=== PATIENT | female | born 1965 | race Caucasian/White ===

== ENCOUNTER 2017-06-27 18:50 | Inpatient (IN) | payer BC, OTHER ==
[~2017-06-27] VITALS: Ht 162.6 cm; Wt 54.4 kg
--- NOTE | 2017-06-28 03:15 | NUR ---
Pre admission note Pt seen in intake office. Pt is in stable condition with V/S WNL. Policies on medication disposal explained to and understood by patient. Will admit to unit. Respirations even and unlabored. Will continue to monitor.
--- NOTE | 2017-06-28 03:40 | NUR ---
Admission note Pt is a 52 yo female, A+Ox4, presenting to [facility] for Benzo/Crack cocaine withdrawal. Pt has allergies to "Oral Antibiotics", is on Full code status, and on Regular diet. Pt is 5'4" in height and 120 LBS in weight. Pt has medical HX of Anxiety, depression, bipolar, fibromyalgia, arthritis, migraines, PTSD, Insomnia, Collagenous colitis, Cervical spine fusion, and chronic loose bowels. Pt has family HX of Cardiomegaly from daughter. Pt has a primary care provider named Dr. Lovelace. Pt has been taking Xanax as prescribed for anxiety for 1 year, has reached a level of 2mg/daily, and last dose was 2mg on 06-26-17. Pt has been using crack cocaine for 37 years (1 day Currently), for this 1 day patient is not sure how much she used by stating "i'm not sure but it was a lot", last dose was on 06-27-17. Pt is taking home medications as follows: Xanax 1mg BID, Zoloft 300mg QD, Wellbutrin 300mg QD, and Trazodone 50mg QHS. Pt has HX of previous detox/rehab @ [facility] in [place], [place] in 03/2011 and continued sobriety until 06/26/2017. This was the patient's last time sober. Pt has been a cigarette smoker for 43 years and has reached a level of 30-40/daily. Pt is in stable condition with V/S WNL. Pt is odorous with messy/dirty clothing. Pt states "I was sober for over 6 years and now i need to get back to sobriety." Pt states "Going to treatment is what helped me last time so i know that this will work for me again." Pt states " I am doing this for my kids." Pt is on PRN medications until further evaluation from [place] in AM. Respirations even and unlabored. Will continue to monitor.
[2017-06-28] MEDS ORDERED: HYDROXYZINE PAMOATE 25 MG CAPSULE PO PRN (03:45)
[2017-06-28] MEDS ORDERED: ONDANSETRON 4 MG/2 ML VIAL IM PRN (03:45)
[2017-06-28] MEDS ORDERED: LORAZEPAM 1 MG TABLET PO PRN ×2 (03:45)
[2017-06-28] MEDS ORDERED: LORAZEPAM 2 MG/1 ML VIAL IM PRN (03:45)
[2017-06-28] MEDS ORDERED: MAGNESIUM HYDROXIDE 30 ML LIQUID UDC PO PRN (03:45)
[2017-06-28] MEDS ORDERED: ACETAMINOPHEN 325 MG TABLET PO PRN (03:45)
[2017-06-28] MEDS ORDERED: MIRALAX 17 GM POWD.PACK PO PRN (03:45)
[2017-06-28] MEDS ORDERED: MAG HYDROX/AL HYDROX/SIMETH 30 ML LIQUID UDC PO PRN (03:45)
[2017-06-28] MEDS ORDERED: LOPERAMIDE HCL 2 MG CAPSULE PO PRN ×2 (03:45)
[2017-06-28] MEDS ORDERED: DICYCLOMINE HCL 20 MG TABLET PO PRN (03:45)
[2017-06-28] MEDS ORDERED: ACET-2154 PO (03:53)
[2017-06-28] MEDS ORDERED: [UNRECOGNIZED DRUG - CODE] PO (03:53)
[2017-06-28] MEDS ORDERED: SUMA100T16 PO (03:53)
[2017-06-28 04:05] VITALS: BP 152/92
[2017-06-28 04:31] LABS: BASOPHILS # (AUTO) 0.1 K/uL (0.0-8.0); BASOPHILS % (AUTO) 1.1 % (0.0-2.0); EOSINOPHILS # (AUTO) 0.5 K/uL (0.0-0.7); EOSINOPHILS % (AUTO) 3.7 % (0.0-7.0); HEMATOCRIT 46.8 % (31.2-41.9); HEMOGLOBIN 16.1 g/dL (10.9-14.3); LYMPHOCYTES # (AUTO) 5.9 K/uL (20.0-40.0); LYMPHOCYTES % (AUTO) 44.9 % (20.5-51.5); MEAN CORPUSCULAR HEMOGLOBIN 31.9 uug (24.7-32.8); MEAN CORPUSCULAR HGB CONC 34 g/dL (32.3-35.6); MEAN CORPUSCULAR VOLUME 92.7 fL (75.5-95.3); MONOCYTES # (AUTO) 0.8 K/uL (2.0-10.0); NEUTROPHILS # (AUTO) 5.8 K/uL (1.8-8.9); NEUTROPHILS % (AUTO) 44.3 % (38.5-71.5); PLATELET COUNT (AUTO) 275 K/uL (179-408); RED BLOOD CELL COUNT(AUTO) 5.04 MIL/uL (3.63-4.92); WHITE BLOOD COUNT (AUTO) 13.1 K/uL (3.8-11.8)
--- NOTE | 2017-06-28 04:39 | NUR ---
PRN Ativan 2mg Pt c/o anxiety and noted with CIWA: 16. PRN Ativan 2mg given and tolerated well. Will reassess within 1 HR. Will continue to monitor.
[2017-06-28 04:52] LABS: ALANINE AMINOTRANSFERASE 30 U/L (14-59); ALKALINE PHOSPHATASE 131 U/L (50-136); AMYLASE 134 U/L (25-115); ASPARTATE AMINOTRANSFERASE 18 U/L (15-37); BILIRUBIN,TOTAL 0.5 mg/dL (0.2-1.0); CARBON DIOXIDE 27 mmol/L (21-32); CHLORIDE 100 mmol/L (98-107); CREATININE 0.9 mg/dL (0.6-1.3); GLUCOSE 107 mg/dL (74-106); LIPASE 718 U/L (73-393); MAGNESIUM 2.1 mg/dL (1.8-2.4); POTASSIUM 3.2 mmol/L (3.5-5.1); TOTAL PROTEIN, SERUM 9.2 g/dL (6.4-8.2); UREA NITROGEN, BLOOD 16 mg/dL (7-18)
[2017-06-28 04:59] LABS: ETHANOL < 3 MG/DL (0-0)
[2017-06-28 05:00] LABS: *AMPHETAMINE, URINE NEGATIVE (NEGATIVE); *BARBITURATE, URINE NEGATIVE (NEGATIVE); *CANNABINOID, URINE NEGATIVE (NEGATIVE); *COCCAINE, URINE POSITIVE (NEGATIVE); *OPIATE, URINE NEGATIVE (NEGATIVE); *PHENCYCLIDINE SCREEN,URINE NEGATIVE (NEGATIVE)
[2017-06-28 05:03] LABS: THYROID STIMULATING HORMONE 2.836 mIU/mL (0.358-3.740)
--- NOTE | 2017-06-28 05:36 | NUR ---
PRN Ativan 2mg Reassessment Medication effective. Pt expresses reduction in anxiety with CIWA: 10. No s/s of ASE noted at this time. Respirations even and unlabored. Will continue to monitor.
--- NOTE | 2017-06-28 06:54 | NUR ---
End of shift note Newly admitted patient. Pt was continuously noted with anxiety, restlessness, and agitation. Pt remained in room for majority of remainder of shift except to go smoke on smoking patio and to get food from kitchen. Pt was given PRN Ativan 2mg @0439. Pt slept for a total of 1 HRS. Last CIWA: 10 @0530. Respirations even and unlabored. Will continue to monitor.
--- NOTE | 2017-06-28 07:49 | NUR ---
Start of shift- Pt admitted for medically supervised withdrawal of Benzo (Xanax) and cocaine. Pt asleep, responds to voice and light touch. Resp even and unlabored. Patient noted to be disheveled, unkempt and uncombed. Pt was given PRN Ativan 2mg @0439. Pt slept for a total of 1 hour Last CIWA: 10 @0530. Patient reports allergies to oral antibiotics. Will continue to encourage pt to attend groups to learn/develop new copings kills to prevent relapse. Pt is on Regular Diet, Full Code, and Fall and Seizures Precautions. Safety measures in the place: Call light within reach, bed in the lowest position and locked, padded rails up x2. Will continue to closely monitor s/s of withdrawal.
[2017-06-28 08:00] VITALS: BP 125/84
--- NOTE | 2017-06-28 08:00 | NUR ---
CIWA 5, Pt asleep, resp even and unlabored. responds to voice and light touch. VSS.
[2017-06-28] MEDS ORDERED: MULTIVITAMINS,THERAPEUTIC TABLET PO SCH (09:00)
[2017-06-28] MEDS ORDERED: FOLIC ACID 1 MG TABLET PO SCH (09:00)
[2017-06-28] MEDS ORDERED: POTASSIUM CHLORIDE 20 MEQ TAB.PRT.SR PO ONE ×2 (09:00→13:00)
[2017-06-28] MEDS ORDERED: SUMATRIPTAN SUCCINATE 50 MG TABLET PO PRN (11:45)
[2017-06-28 12:00] VITALS: BP 128/76
[2017-06-28] MEDS: IBUPROFEN 600 MG TABLET PO PRN ×2 (14:02→20:45)
[2017-06-28] MEDS: LORAZEPAM 1 MG TABLET PO SCH ×2 (14:02→20:44)
--- NOTE | 2017-06-28 14:03 | NUR ---
PRN MOTRIN 600 MG PO FOR PAIN #6/10 ON WHOLE RIGHT SIDE.
--- NOTE | 2017-06-28 15:00 | NUR ---
Reassess Motrin- Pt reports pain better now #4/. Medication effective.
[2017-06-28 16:00] VITALS: BP 137/75
--- NOTE | 2017-06-28 18:26 | NUR ---
End of shift- Pt admitted for medically supervised withdrawal of Benzo (Xanax) and cocaine. Pt A&OX4. Resp even and unlabored. Patient has flat affect and depressed mood. Patient noted to be disheveled, unkempt and uncombed. Last CIWA 10. PRN medications administered Motrin per MD orders. Patient reports allergies to oral antibiotics and did not specify which ones. Pt poor historian. Encourage pt to attend groups to learn/develop new copings kills to prevent relapse. Pt did not attend group therapy today. Encouraged to fluid intake as tolerated. Full Code, is on Fall and Seizures Precautions. Safety measures in place. Adequate PO fluid intake 2200 ml, void X 10, BM x 10. Pt has colitis and chronic loose stools. Safety measures in place. Will continue to closely monitor s/s of withdrawal. Endorsed to PM shift.
--- NOTE | 2017-06-28 19:30 | NUR ---
START OF SHIFT Received 52 year old female patient admitted on 06/28/17 for Xanax and Cocaine withdrawal. Pt is alert and oriented x4. She is noted with anxiety, restlessness, flushed face, and irritability. She complains of right shoulder pain 6/10. She is receiving a 4 day Ativan taper and tolerating well. Per endorsement, received PRN Motrin. Last CIWA:10 at 1600. Breathing is even and unlabored, safety measures in place. Will monitor.
[2017-06-28 20:00] VITALS: BP 138/79
[2017-06-28] MEDS: GABAPENTIN 300 MG CAPSULE PO SCH (20:44)
--- NOTE | 2017-06-28 20:45 | NUR ---
PRN MOTRIN Pt complains of right shoulder pain 08/10. PRN Motrin administered as ordered. Safety measures in place. Will monitor effectiveness.
--- NOTE | 2017-06-28 21:45 | NUR ---
PRN REASSESSMENT PRN Motrin effective. Pt lying in bed with eyes closed noted to be asleep. Breathing is even and unlabored, safety measures in place. Will continue to monitor.
[2017-06-29] VITALS: BP 128/72
--- NOTE | 2017-06-29 04:00 | NUR ---
VITALS REFUSED, CIWA DEFERRED 0400 vitals refused. CIWA deferred d/t pt lying in bed with eyes closed noted to be asleep. Breathing is even and unlabored, safety measures in place. Will monitor.
--- NOTE | 2017-06-29 07:14 | NUR ---
END OF SHIFT Pt is a 52 year old female patient admitted on 06/28/17 for Xanax and Cocaine withdrawal. Pt remains alert and oriented x4. She was noted with anxiety, restlessness, flushed face, and irritability during the shift. She continues on a 4 day Ativan taper, currently on day 2 and is tolerating well. At 2044 she received PRN Motrin. She slept a total of 7 hrs, Intake: 1047mL, Void: x2, BM:0, Last CIWA:8 at 1999. Breathing is even and unlabored, safety measures in place. Endorsed to AM shift.
--- NOTE | 2017-06-29 07:36 | NUR ---
Start of shift- Pt admitted for medically supervised withdrawal of Benzo (Xanax) and cocaine. Pt asleep, responds to voice and light touch. Resp even and unlabored. Patient noted to be disheveled, unkempt and uncombed. Pt was given PRN Motrin last night. . Pt slept for a total of 7 hours. Last CIWA: 8. Patient reports allergies to oral antibiotics. Will continue to encourage pt to attend groups to learn/develop new copings kills to prevent relapse. FULL CODE, Fall and Seizures Precautions. Safety measures in the place: Call light within reach, bed in the lowest position and locked, padded rails up x2. Will continue to closely monitor s/s of withdrawal.
[2017-06-29 08:02] VITALS: BP 149/87
[2017-06-29] MEDS: GABAPENTIN 300 MG CAPSULE PO SCH ×3 (08:54→21:45)
[2017-06-29] MEDS: LORAZEPAM 1 MG TABLET PO SCH ×2 (08:54→14:15)
[2017-06-29] MEDS ORDERED: TUBERCULIN,PURIF.PROT.DERIV. 5 TU/0.1 ML TEST ID ONE (09:00)
[2017-06-29 12:00] VITALS: BP 141/78
[2017-06-29 12:06] LABS: HEPATITIS B SURFACE AG Negative (Negative)
[2017-06-29] MEDS: CLONIDINE HCL 0.1 MG TABLET PO PRN ×2 (12:29→22:38)
[2017-06-29] MEDS: HYDROXYZINE PAMOATE 25 MG CAPSULE PO PRN (12:29)
[2017-06-29] MEDS: IBUPROFEN 600 MG TABLET PO PRN ×2 (12:29→21:45)
--- NOTE | 2017-06-29 12:30 | NUR ---
PRN MEDICATIONS MOTRIN 600 MG PO FOR NECK PAIN #4/10 VISTARIL 25 MG PO FOR ANXIETY. CATAPRES 0.1 MG PO FOR ANXIETY PT TEARFUL, CRYING, ANXIETY AND UPSET ABOUT SESSION IN GROUP THERAPY.
--- NOTE | 2017-06-29 12:44 | NUR ---
Therapist prompted client to attend next group session at 3:30pm today.
--- NOTE | 2017-06-29 13:30 | NUR ---
REASSESS PRN MEDICATIONS; PT ASLEEP, RESP EVEN AN UNLABORED. ANTI-ANXIETY MEDICATIONS EFFECTIVE.
[2017-06-29 16:00] VITALS: BP 98/61
--- NOTE | 2017-06-29 18:32 | NUR ---
End of shift- Pt admitted for medically supervised withdrawal of Benzo (Xanax) and cocaine. Pt on 4 day Ativan taper (day 2). Last CIWA 7. Patient has flat affect and depressed mood. She was tearful, crying and anxious today after morning group session. Difficulty ID + coping skills. PRN medications Vistaril, Catapres, Motrin. Patient reports allergies to oral antibiotics and did not specify which ones. Encourage pt to attend groups to learn/develop new copings kills to prevent relapse. Pt attended both group therapy sessions today. Encouraged to fluid intake as tolerated. Full Code, is on Fall and Seizures Precautions. Safety measures in place. Adequate PO fluid intake 2236 ml, void X 1, BM x 1. Pt has colitis and chronic loose stools. Safety measures in place. Will continue to closely monitor s/s of withdrawal. Endorsed to PM shift.
--- NOTE | 2017-06-29 19:30 | NUR ---
START OF SHIFT Pt is a 52 y/o female admitted on 06/28/17 for benzo and cocaine withdrawal. Pt received PRN Vistaril, Clonidine and Motrin and last CIWA 7 during day shift. Upon assessment pt presents with increased BP, anxiety, emotional lability, agitation, worry, flat affect, is tearful, toothache 5/10, neck and shoulder pain 5/10, nausea, difficulty falling and staying asleep, disheveled appearance, unkempt room, depressed mood, restlessness, dysphoria and anhedonia. Pt refused side rails up x 2, one side rail up at this time, provided education about safety of side rails, pt understood and refused. Medications due. Safety measures in place. Call light within reach. Will continue to monitor.
[2017-06-29 20:00] VITALS: BP 141/89
[2017-06-29] MEDS ORDERED: LORAZEPAM 1 MG TABLET PO SCH (21:00)
[2017-06-29] MEDS: diphenhydrAMINE 50 MG CAPSULE PO PRN (21:45)
[2017-06-29] MEDS: ONDANSETRON ODT 4 MG TAB.RAPDIS SL PRN (21:45)
--- NOTE | 2017-06-29 21:45 | NUR ---
PRN BENADRYL, MOTRIN AND ZOFRAN ODT ADMINISTRATION Pt requests sleep aid. Pt complains of tooth pain and neck/shoulder pain 5/10 and nausea without vomiting. Safety measures in place. Call light within reach. Will continue to monitor.
--- NOTE | 2017-06-29 22:45 | NUR ---
PRN BENADRYL, MOTRIN AND ZOFRAN REASSESSMENT AND CLONIDINE ADMINISTRATION Pt remains awake, but appears more fatigued. Pt reports pain in teeth and neck reduced to tolerable level. Pt reports nausea has ceased. BP 150/90 HR 80 and presents with anxiety, agitation and intermittent sweats and chills. Safety measures in place. Call light within reach. Will continue to monitor.
--- NOTE | 2017-06-29 23:45 | NUR ---
PRN CLONIDINE REASSESSMENT Pt presents with improvement in anxiety, agitation, sweats and chills. Safety measures in place. Call light within reach. Will continue to monitor.
[2017-06-30] VITALS: BP 114/68
[2017-06-30 04:00] VITALS: BP 121/72
--- NOTE | 2017-06-30 04:00 | NUR ---
CIWA DEFERRED Pt laying in bed with eyes closed, CIWA deferred, to be assessed when pt is awake per orders. Respirations even and unlabored. Safety measures in place. Call light within reach. Will continue to monitor.
--- NOTE | 2017-06-30 07:00 | NUR ---
start of shift note: received pt from shift superintendent nurse, pt is in stable condition at this time. pt is awake and wanting to smoke a cigarette. pt is admitted to [facility] for Benzo/cocaine last documented ciwa 10, pt slept 6 hrs. will continue to monitor pt for any changes and will continue to meet pts needs.
--- NOTE | 2017-06-30 07:13 | NUR ---
END OF SHIFT Pt is a 52 y/o female admitted on 06/28/17 for benzo and cocaine withdrawal. Pt is on a 4 day Ativan taper, tolerating well. Pt presented with increased BP, anxiety, emotional lability, agitation, worry, flat affect, is tearful, toothache 5/10, neck and shoulder pain 5/10, nausea, difficulty falling and staying asleep, disheveled appearance, unkempt room, depressed mood, restlessness, dysphoria and anhedonia. Pt refused side rails up x 2, one side rail up at this time, provided education about safety of side rails, pt understood and refused. Pt reported loose stools, refused Imodium. Scheduled medications and PRN Benadryl, Motrin, Zofran odt and Clonidine administered, effective in S/S of withdrawal AEB CIWA 11 lowered to CIWA 10. Pt slept 6 hours. Intake 902 ml, void x 2, stool x 0. Safety measures in place. Call light within reach. Will continue to monitor.
[2017-06-30 08:36] LABS: BASOPHILS # (AUTO) 0.1 K/uL (0.0-8.0); BASOPHILS % (AUTO) 1.1 % (0.0-2.0); EOSINOPHILS # (AUTO) 0.4 K/uL (0.0-0.7); EOSINOPHILS % (AUTO) 4.2 % (0.0-7.0); LYMPHOCYTES % (AUTO) 38.5 % (20.5-51.5); MEAN CORPUSCULAR HEMOGLOBIN 31.9 uug (24.7-32.8); MEAN CORPUSCULAR HGB CONC 34 g/dL (32.3-35.6); MEAN CORPUSCULAR VOLUME 93.4 fL (75.5-95.3); MONOCYTES # (AUTO) 0.6 K/uL (2.0-10.0); MONOCYTES % (AUTO) 5.8 % (0.0-11.0); NEUTROPHILS # (AUTO) 5.2 K/uL (1.8-8.9); NEUTROPHILS % (AUTO) 50.4 % (38.5-71.5); PLATELET COUNT (AUTO) 233 K/uL (179-408); RED BLOOD CELL COUNT(AUTO) 4.38 MIL/uL (3.63-4.92); WHITE BLOOD COUNT (AUTO) 10.3 K/uL (3.8-11.8)
[2017-06-30] MEDS: GABAPENTIN 300 MG CAPSULE PO SCH ×3 (08:47→20:36)
[2017-06-30] MEDS: LORAZEPAM 1 MG TABLET PO SCH ×3 (08:47→20:36)
[2017-06-30] MEDS: IBUPROFEN 600 MG TABLET PO PRN ×2 (08:51→20:36)
--- NOTE | 2017-06-30 08:51 | NUR ---
PRN administration: pt with complaints of neck pain on her right side, pain level 5/10. will administer Motrin and monitor effectiveness of medication.
[2017-06-30 08:55] LABS: BILIRUBIN,DIRECT 0.1 mg/dL (0.0-0.2); BILIRUBIN,TOTAL 0.2 mg/dL (0.2-1.0); CREATININE 1.1 mg/dL (0.6-1.3)
[2017-06-30 09:00] LABS: POTASSIUM 6.5 mmol/L (3.5-5.1)
[2017-06-30] MEDS ORDERED: LORAZEPAM 1 MG TABLET PO SCH (09:00)
[2017-06-30 09:21] VITALS: BP 130/79
[2017-06-30] MEDS ORDERED: FUROSEMIDE 40 MG TABLET PO ONE (09:45)
[2017-06-30] MEDS ORDERED: SODIUM POLYSTYRENE SULFONATE 15 G/60 ML LIQUID UDC PO ONE ×2 (09:45→23:30)
--- NOTE | 2017-06-30 09:51 | NUR ---
prn re-assessment: pt verbalized effectiveness, she is able to move and turn her neck more easily. pain level 2/10.
[2017-06-30 12:38] VITALS: BP 131/87
[2017-06-30] MEDS: HYDROXYZINE PAMOATE 25 MG CAPSULE PO PRN (12:48)
[2017-06-30] MEDS: ONDANSETRON ODT 4 MG TAB.RAPDIS SL PRN (12:48)
--- NOTE | 2017-06-30 12:48 | NUR ---
Prn administration, pt verbalized she was nauseated and having increased anxiety levels, will administer vistaril and zofran will re-assess effectiveness.
--- NOTE | 2017-06-30 13:48 | NUR ---
prn re-assessment: pt verbalized zofran and vistaril with help. pt verbalizes no nausea and was able to eat lunch and is less anxious
[2017-06-30 14:18] LABS: CREATININE 1.1 mg/dL (0.6-1.3); PHOSPHOROUS 5.9 mg/dL (2.5-4.9); POTASSIUM 5.8 mmol/L (3.5-5.1)
[2017-06-30 18:04] VITALS: BP 126/86
--- NOTE | 2017-06-30 18:58 | NUR ---
end of shift note: pt is in stable condition at this time, pt is sleeping heavily at this time, pt is [facility] for benzo/crack cocaine. pt tolerated taper well with no A/R noted. pt attended groups. pt's potassium was critically high 6.5 and, pt received kayexalate and lasix x1. pt then had a re- draw and noted at 5.8 medication was effective. will endorse pt to mine shifter nurse.
--- NOTE | 2017-06-30 19:30 | NUR ---
START OF SHIFT Pt is a 52 y/o female admitted on 06/28/17 for benzo and cocaine withdrawal. Pt received PRN Zofran, Vistaril and Motrin and last CIWA 5 during day shift. Pt has hyperkalemia, Furosemide 40 mg PO x1 and Kayexalate 30 g PO x1 administered during day shift. K+ lowered from 6.5 to 5.8 today. Upon assessment pt presents with anxiety, agitation, worry, flat affect, is occasionally tearful, toothache 5/10, neck pain 5/10, intermittent nausea, difficulty falling and staying asleep, disheveled appearance, racing thoughts, unkempt room, depressed mood, restlessness, dysphoria and anhedonia. Pt also complains of loose stools, stomach discomfort, bloating and gas r/t colitis. Pt refused side rails up x 2, one side rail up at this time, provided education about safety of side rails, pt understood and refused. Medications due. Safety measures in place. Call light within reach. Will continue to monitor.
[2017-06-30 20:00] VITALS: BP 117/63
[2017-06-30] MEDS: diphenhydrAMINE 50 MG CAPSULE PO PRN (20:36)
--- NOTE | 2017-06-30 20:36 | NUR ---
PRN MOTRIN, BENADRYL AND MAALOX ADMINISTRATION Pt reports neck pain 8/10 and heartburn. Pt requests sleep aid. Safety measures in place. Call light within reach. Will continue to monitor.
--- NOTE | 2017-06-30 21:36 | NUR ---
PRN MOTRIN, BENADRYL AND MAALOX REASSESSMENT Pt reports neck pain reduced to 5/10 and heartburn has ceased. Pt remains awake, appears fatigued. Pt states, "I'm going to bed soon." Safety measures in place. Call light within reach. Will continue to monitor.
[2017-06-30] MEDS ORDERED: FUROSEMIDE 20 MG TABLET PO ONE (23:30)
[2017-06-30] MEDS ORDERED: FUROSEMIDE 20 MG TABLET ONE (23:55)
[2017-06-30] MEDS: SIMETHICONE 80 MG TAB.CHEW PO PRN (23:58)
--- NOTE | 2017-06-30 23:58 | NUR ---
PRN MYLICON ADMINISTRATION Pt reports flatulence and bloating. Safety measures in place. Call light within reach. Will continue to monitor.
[2017-07-01] VITALS: BP 130/70
[2017-07-01] MEDS ORDERED: TRAZODONE 50 MG TABLET PO ONE ×2 (00:30→21:00)
--- NOTE | 2017-07-01 00:58 | NUR ---
PRN MYLICON REASSESSMENT Pt reports flatulence and bloating improved. Safety measures in place. Call light within reach. Will continue to monitor.
--- NOTE | 2017-07-01 04:00 | NUR ---
CIWA DEFERRED AND VITALS REFUSED Pt laying in bed with eyes closed, CIWA deferred, to be assessed when pt is awake per orders. Vitals refused. Respirations even and unlabored. Safety measures in place. Call light within reach. Will continue to monitor.
[2017-07-01 06:57] LABS: PHOSPHOROUS 3.6 mg/dL (2.5-4.9); POTASSIUM 3.5 mmol/L (3.5-5.1)
--- NOTE | 2017-07-01 06:58 | NUR ---
END OF SHIFT Pt is a 52 y/o female admitted on 06/28/17 for benzo and cocaine withdrawal. Pt presented with anxiety, agitation, worry, flat affect, is occasionally tearful, toothache 5/10, neck pain 5/10, intermittent nausea, difficulty falling and staying asleep, disheveled appearance, racing thoughts, unkempt room, depressed mood, restlessness, dysphoria and anhedonia. Pt also complained of loose stools, stomach discomfort, bloating and gas r/t colitis. Pt refused medication for diarrhea, requested medication for gas/bloating. New order for PRN simethicone 80 mg now available. Pt refused side rails up x 2, one side rail up at this time, provided education about safety of side rails, pt understood and refused. Furosemide 40 mg PO x1 and Kayexalate 30 g PO x1 administered during for K+ 07/08. Scheduled medications and PRN Motrin, Benadryl, Maalox and Mylicon administered, effective in S/S of withdrawal AEB CIWA 10 lowered to CIWA 9 during shift and as verbalized by pt. Pt slept 5 hours. Intake 1650 ml, void x 5, stool x 1. Safety measures in place. Call light within reach. Pts needs have been met. Endorsed to day shift nurse.
[2017-07-01 07:15] VITALS: BP 109/71
--- NOTE | 2017-07-01 07:30 | NUR ---
Start of shift Hydraulic Controls Technician received report on 52 year old female admitted to [facility] on 06/28/17 for medical management of withdrawals from Xanax and Methamphetamines. Pt endorses allergies to unidentified oral anti-biotics, full code and regular diet. Reports past medical history of Fibromyalgia, arthritis, migraines, insomnia, Colitis, Cervical spinal fusion and chronic loose bowels. PPH of anxiety, depression Bipolar and PTSD. Pt was administered Simethicone(Gas), Motrin(pain), Benadryl(insomnia), and Maalox(Bloating/gas). Pt is on an Ativan taper and is tolerating well with last CIWA 9, per report. Hydraulic Controls Technician encounters pt in room resting with eyes closed, rise and fall of chest noted. Even and unlabored respiration. Bed in low position with wheels locked and side rails up x2. Will continue to monitor, support and encourage according to plan of care.
[2017-07-01 08:45] VITALS: BP 109/71
[2017-07-01] MEDS ORDERED: LORAZEPAM 1 MG TABLET PO SCH (09:00)
[2017-07-01] MEDS: GABAPENTIN 300 MG CAPSULE PO SCH ×3 (09:27→20:56)
[2017-07-01] MEDS: SIMETHICONE 80 MG TAB.CHEW PO PRN ×2 (09:36→18:18)
--- NOTE | 2017-07-01 09:36 | NUR ---
PRN Simethicone Pt request medication for gas. Medication administered per order with pt tolerating well. Will continue to monitor, support and encourage according to plan of care.
--- NOTE | 2017-07-01 10:10 | NUR ---
PRN Re-Assessment Pt with no complaints. Will continue to monitor, support and encourage according to plan of care.
[2017-07-01 12:33] VITALS: BP 125/83
--- NOTE | 2017-07-01 14:15 | NUR ---
Client was prompted by therapist to attend group counseling sessions. Client stated she may attend next group counseling session at 3:30pm depending on her mood.
[2017-07-01] MEDS: HYDROXYZINE PAMOATE 25 MG CAPSULE PO PRN ×2 (14:42→20:56)
--- NOTE | 2017-07-01 14:42 | NUR ---
PRN Vistaril/Clonidine Spotlight Operator complain of anxiety and requests medication. Spotlight Operator educated pt on non-pharmacological interventions previous to administration of medication. Pt tolerated well. Will continue to monitor, support ans encourage according to plan of care.
[2017-07-01] MEDS: CLONIDINE HCL 0.1 MG TABLET PO PRN (14:43)
--- NOTE | 2017-07-01 15:42 | NUR ---
PRN Re-Assessment Pt endorses relief and is resting comfortably in room. Will continue to monitor, support and encourage according to plan of care.
[2017-07-01 16:30] VITALS: BP 118/63
--- NOTE | 2017-07-01 18:18 | NUR ---
PRN Simethicone Pt complains of gas and bloating and is administered medication per order and tolerated well. Will continue to monitor, support and encourage according to plan of care.
--- NOTE | 2017-07-01 19:14 | NUR ---
End of shift Scientific Technical Writer provided report on 52 year old female admitted to [facility] on 06/28/17 for medical management of withdrawals from Xanax and Methamphetamines. Pt endorses allergies to unidentified oral anti-biotics, full code and regular diet. Reports past medical history of Fibromyalgia, arthritis, migraines, insomnia, Colitis, Cervical spinal fusion and chronic loose bowels. PPH of anxiety, depression Bipolar and PTSD. Pt was administered Simethicone(Gas) x2, and Vistaril(anxiety) and Clonidine(anxiety) PRN on my shift. Pt is on an Ativan taper and is tolerating well with last CIWA 8 at 1630. Pt has been calm and cooperative and makes her needs known. A/O x4, clear thought and speech with linear thought process. Pt is labile and has low frustration tolerance and is impulsive. Bed in low position with wheels locked and side rails up x2.
--- NOTE | 2017-07-01 19:16 | NUR ---
PRN Re-Assessment Pt has made no more complaints related to gas or bloating.
[2017-07-01] MEDS ORDERED: CLON0.1T14 PO (19:21)
[2017-07-01] MEDS ORDERED: GABA-534 PO ×2 (19:21)
[2017-07-01] MEDS ORDERED: IBUP-1955 PO (19:21)
[2017-07-01] MEDS ORDERED: SUMA50TA PO (19:21)
[2017-07-01] MEDS ORDERED: HYDR-3895 PO (19:21)
[2017-07-01] MEDS ORDERED: DIPH50CA37 PO (19:21)
--- NOTE | 2017-07-01 19:30 | NUR ---
START OF SHIFT Pt is a 52 y/o female admitted on 06/28/17 for benzo and cocaine withdrawal. Pt finished a 4 day Ativan taper and is scheduled to be d/c tomorrow. Pt received PRN simethicone x 2, Vistaril and Clonidine and last CIWA 8 during day shift. Upon assessment pt presents with anxiety, agitation, worry, flat affect, toothache 5/10, neck pain 5/10, difficulty falling and staying asleep, disheveled appearance, racing thoughts, hyperverbal speech, unkempt room, restlessness, dysphoria and anhedonia. Pt also complains of stomach discomfort, bloating and gas r/t colitis. Pt refused side rails up x 2, one side rail up at this time, provided education about safety of side rails, pt understood and refused. Medications due. Safety measures in place. Call light within reach. Will continue to monitor.
[2017-07-01 20:00] VITALS: BP 128/63
[2017-07-01] MEDS: IBUPROFEN 600 MG TABLET PO PRN (20:56)
--- NOTE | 2017-07-01 20:56 | NUR ---
PRN MOTRIN ADMINISTRATION Pt reports neck pain and tooth pain 5/10. Safety measures in place. Call light within reach. Will continue to monitor.
--- NOTE | 2017-07-01 21:56 | NUR ---
PRN MOTRIN REASSESSMENT Pt reports neck pain and tooth pain reduced to tolerable level. Safety measures in place. Call light within reach. Will continue to monitor.
[2017-07-02 04:00] VITALS: BP 131/67
--- NOTE | 2017-07-02 07:07 | NUR ---
END OF SHIFT Pt is a 52 y/o female admitted on 06/28/17 for benzo and cocaine withdrawal. Pt finished a 4 day Ativan taper and is scheduled to be d/c today. Pt presented with anxiety, agitation, worry, flat affect, toothache 5/10, neck pain 5/10, difficulty falling and staying asleep, disheveled appearance, racing thoughts, hyperverbal speech, unkempt room, restlessness, dysphoria and anhedonia. Pt also complains of stomach discomfort, bloating and gas r/t colitis. Scheduled medications and PRN Motrin administered, effective in S/S of withdrawal AEB CIWA 8 lowered to CIWA 6 during shift. Pt slept 4 hours. Intake 1306 ml, void x 4, stool x 0. Safety measures in place. Call light within reach. Pts needs have been met. Endorsed to day shift nurse.
--- NOTE | 2017-07-02 07:15 | NUR ---
Start of shift Cracker Off received report on 52 year old female admitted to [facility] on 06/28/17 for medical management of withdrawals from Xanax and Methamphetamines. Pt endorses allergies to unidentified oral anti-biotics, full code and regular diet. Reports past medical history of Fibromyalgia, arthritis, migraines, insomnia, Colitis, Cervical spinal fusion and chronic loose bowels. PPH of anxiety, depression Bipolar and PTSD. Pt was administered Benadryl(insomnia) as PRN per NOC report. Pt has completed their Ativan taper and is scheduled to discharge this am. Last CIWA 6 per report. Cracker Off encounters pt in room. Pt is packing and preparing for discharge. Pt is bright and has congruent mood. Pt is anxious and has difficulty sitting still. Motivated for RTC. Bed in low position with wheels locked and side rails up x2. Will continue to monitor, support and encourage according to plan of care. Addendum: 07/02/17 at 0828 by DANE SENIOR RN Pt was administered Motrin(pain). Was not administered Benadryl
[2017-07-02 08:07] VITALS: BP 126/78
[2017-07-02] MEDS: GABAPENTIN 300 MG CAPSULE PO SCH (08:55)
--- NOTE | 2017-07-02 09:28 | NUR ---
Discharge Computerized Table Cutter educated pt on all discharge instructions and medication education. Pt provided copies all pertinent medical records including lab values, TB testing and specific educational material. Pt was educated on medication indication, route, timing and doses. Pt provided with prescriptions. Pt's personal belongings returned and sign for. Home medications retuned and signed for. Pt is A/O x4 with bright affect and anxious mood. Clear and linear thought process. Pt denies SI/HI or A/VH or any other associated symptoms. Pt VS stable and pt with no complaints. Motivated for change. Pt is discharged to [facility] per ambulation and escorted to private care by staff.
== END 2017-07-02 09:28 | disposition other institution (70) | DRG 895 ==
LOC: SRC 06-28 02:16
PROVIDERS: ADMIT Internal Medicine; ATTEND Internal Medicine
PROC: HZ2ZZZZ Detoxification Services for Substance Abuse Treatment (ICD-10-PCS; principal; 2017-06-28)
PROC: HZ41ZZZ Group Counseling for Substance Abuse Treatment, Behavioral (ICD-10-PCS; 2017-06-29)
PROC: HZ31ZZZ Individual Counseling for Substance Abuse Treatment, Behavioral (ICD-10-PCS; 2017-07-01)
DX: F13.232 Sedative, hypnotic or anxiolytic dependence with withdrawal with perceptual disturbance (principal); K85.90 Acute pancreatitis without necrosis or infection, unspecified; I15.9 Secondary hypertension, unspecified; E87.5 Hyperkalemia; E87.6 Hypokalemia; F17.210 Nicotine dependence, cigarettes, uncomplicated; G43.909 Migraine, unspecified, not intractable, without status migrainosus; M79.7 Fibromyalgia; G47.00 Insomnia, unspecified; F41.9 Anxiety disorder, unspecified; F14.10 Cocaine abuse, uncomplicated; M19.90 Unspecified osteoarthritis, unspecified site; F32.9 Major depressive disorder, single episode, unspecified; Z91.5 Personal history of self-harm; Z91.89 Other specified personal risk factors, not elsewhere classified; K52.9 Noninfective gastroenteritis and colitis, unspecified; M50.80 Other cervical disc disorders, unspecified cervical region; Z98.1 Arthrodesis status; K08.89 Other specified disorders of teeth and supporting structures; E86.0 Dehydration; R73.9 Hyperglycemia, unspecified; R79.89 Other specified abnormal findings of blood chemistry
CPT/HCPCS: 36415; 70030-TC; 80307; 80346; 80353; 83690; 83735; 84100; 84443; 85025; 86580; 86592; 86705; 86803; 87340; 87806; G0480; Q0162; Q0163